=== PATIENT | male | born 1950 | race African-American/Black ===

== ENCOUNTER → 2017-11-13 | Outpatient (CLI) | payer MEDICARE, MEDICAID ==
--- NOTE | 2017-11-13 13:59 | RADIOLOGY REPORT (SQ) ---
EXAM DESCRIPTION: KNEE LEFT 4 VIEWS COMPLETED DATE/TIME: 11/13/2017 12:28 pm REASON FOR STUDY: PAIN IN LEFT KNEE M25.562 PAIN IN LEFT KNEE COMPARISON: None. NUMBER OF VIEWS: Four views. TECHNIQUE: AP, lateral, and both oblique radiographic images acquired of the left knee. LIMITATIONS: None. FINDINGS: MINERALIZATION: Normal. BONES: No acute fracture or dislocation. No worrisome bone lesions. JOINT: Trace suprapatellar knee joint effusion. Mild patellofemoral and lateral compartment joint sp genesis narrowing and bony spurring. SOFT TISSUES: No focal soft tissue swelling. No radiopaque foreign body. Atherosclerotic popliteal artery calcifications OTHER: No other significant finding. IMPRESSION: Trace suprapatellar knee joint effusion. Mild patellofemoral and lateral compartment kimberli int space narrowing TECHNICAL DOCUMENTATION: JOB ID: [id number] [employer]- All Rights Reserved
== END ==
LOC: OD 12:07
PROVIDERS: ATTEND Nurse Practitioner Acute Care
DX: M25.562 Pain in left knee (principal)

== ENCOUNTER 2018-06-29 18:14 | Emergency (ER) | payer OTHER, MEDICARE, MEDICAID ==
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
[2018-06-29 21:41] VITALS: BP 132/74
== END 2018-06-29 21:41 | disposition home or self-care (01) ==
LOC: ER 18:14
DX: S16.1XXA Strain of muscle, fascia and tendon at neck level, initial encounter (principal); M25.511 Pain in right shoulder; M54.2 Cervicalgia; V69.40XA Driver of heavy transport vehicle injured in collision with unspecified motor vehicles in traffic accident, initial encounter; R91.8 Other nonspecific abnormal finding of lung field; I10 Essential (primary) hypertension; J44.9 Chronic obstructive pulmonary disease, unspecified; F17.210 Nicotine dependence, cigarettes, uncomplicated; Z71.6 Tobacco abuse counseling; Z88.5 Allergy status to narcotic agent
CPT/HCPCS: 72125; 99284; 99406